=== PATIENT | male | born 1965 | race Caucasian/White ===

== ENCOUNTER 2019-04-05 06:59 | Day surgery (SDC) | payer BC ==
[2019-03-31 14:54] VITALS: BMI 22.1
[~2019-04-05 06:59] MED LIST: LACTATED RINGERS 1,000 ML IV SCH
[2019-04-05 07:20] VITALS: RESP 16; TEMP 97.8
[2019-04-05] MEDS ORDERED: LIDOCAINE 1% 20 ML VIAL (10MG/ML) FOR IV START INTRADERMA ONE (07:30)
[2019-04-05] MEDS ORDERED: PROPOFOL 10 MG/ML 20 ML VIAL IV ONE (08:01)
[2019-04-05] MEDS ORDERED: LIDOCAINE 1% INJ 10MG/ML (20 ML MDV) ONE (08:01)
--- NOTE | 2019-04-05 08:36 | P.PCN ---
Date of Procedure: 04/05/19 Description of Procedure: BRIEF HISTORY: Patient is a 53-year-old male who presents for outpatient colonoscopy for screening for neoplasm the colon. No prior colonoscopies reported. The patient denies any change in bowel habits, abdominal pain, blood per rectum or family history of colon cancer. PROCEDURE PERFORMED: Colonoscopy with polypectomy. PREOPERATIVE DIAGNOSIS: Screening for malignant neoplasm of the colon, No Prior Colonoscopies reported. ESTIMATED BLOOD LOSS: Minimal. IV sedation per Anesthesia. PROCEDURE: After informed consent was obtained, the patient, was brought into the endoscopy unit. IV sedation was administered by Anesthesia under continuous monitoring. Digital rectal examination was normal. Initially the Olympus CF-190 flexible video colonoscope was then inserted in the rectum, gradually advanced into the cecum without any difficulty. Careful examination was performed as the scope was gradually being withdrawn. Ileocecal valve and the appendiceal orifice were visualized and appeared normal. Prep was excellent. Mucosa of the cecum, as cending colon, transverse colon, descending colon, sigmoid colon, and rectum appeared normal. Diminutive 1 mm descending colon polyp removed with cold forcep polypectomy. Diminutive 2 mm sigmoid colon polyp removed with cold forcep polypectomy. Retroflexion was performed in the rectum and no lesions were seen. The patient tolerated the procedure well. IMPRESSION: 2 diminutive colon polyps removed from the descending colon and sigmoid colon with cold forcep polypectomy. Otherwise Normal-appearing colon from rectum to cecum. RECOMMENDATIONS: Findings of this examination were discussed with the patient. Okay to resume diet and medications. Await pathology from polypectomy. Would recommend repeat colonoscopy in 5-10 years pending pathology from polypectomies.
[2019-04-05 08:39] VITALS: PULSE 67
[2019-04-05 08:52] VITALS: BP 101/73
== END 2019-04-05 09:22 ==
LOC: ORWHC2ENDO 06:59
PROVIDERS: ATTEND Internal Medicine
DX: Z12.11 Encounter for screening for malignant neoplasm of colon (principal); K63.5 Polyp of colon; F17.210 Nicotine dependence, cigarettes, uncomplicated; Z80.6 Family history of leukemia
CPT/HCPCS: 88305; 45380; J2001; J2704

== ENCOUNTER 2020-11-17 22:37 | Inpatient (IN) | payer BC ==
[2020-11-17] MEDS ORDERED: diphenhydrAMINE 50 MG/ML 1 ML VIAL IVP STA (22:51)
[2020-11-17] MEDS ORDERED: FAMOTIDINE 20 MG/2 ML VIAL IV STA (22:51)
[2020-11-17] MEDS ORDERED: methylPREDNISolone SOD SUCCI 125 MG/2 ML VIAL IV STA (22:51)
[2020-11-17] MEDS ORDERED: SODIUM CHLORIDE 0.9% 500 ML 500 ML IV STA (22:52)
[2020-11-17 23:12] LABS: Basophils # (A) 0.1 k/uL (0-0.2); Basophils % (A) 1 %; Eosinophils # (A) 0.4 k/uL (0-0.7); Eosinophils % (A) 3 %; HGB 16.2 gm/dL (13.0-17.5); Lymphocytes % (A) 14 %; MCH 31.2 pg (25.0-35.0); MCHC 33.7 g/dL (31.0-37.0); MCV 92.6 fL (80.0-100.0); Mean Platelet Volume 8.3; Monocytes # (A) 0.7 k/uL (0-1.0); Monocytes % (A) 5 %; Neutrophils % (A) 77 %; Platelet Count 178 k/uL (150-450); RBC 5.18 m/uL (4.30-5.90); RDW 13.3 % (11.5-15.5); WBC 14.4 k/uL (3.8-10.6)
[2020-11-17 23:24] LABS: Albumin 4.5 g/dL (3.5-5.0); Calcium 10.1 mg/dL (8.4-10.2); Potassium 3.8 mmol/L (3.5-5.1); Total Bilirubin 0.5 mg/dL (0.2-1.3); Total Protein 7.2 g/dL (6.3-8.2)
--- NOTE | 2020-11-18 00:18 | CT ---
EXAMINATION TYPE: CT soft tissue neck w con DATE OF EXAM: 11/17/2020 COMPARISON: None HISTORY: Throat Swelling CT DLP: 276.60 mGycm Automated exposure control for dose reduction was used. CONTRAST: Performed with IV Contrast, patient injected with 100 mL of Isovue 300. Images obtained from the top of the aortic arch to the top of the frontal sinuses with IV contrast. There is fairly normal aeration of the paranasal sinuses. There is mild mucosal thickening in the pos terior right maxillary sinus. Orbital margins are intact. There is no evidence of retro-orbital mass. Maxilla is intact. Nasal bone is intact. Epiglottis shows some thickening. This has low attenuation and could be edema. The prevertebral soft tissues appear intact. Cervical vertebra have normal spacing and alignment. Facet joints are intact. The tongue appears intact. The tonsils and adenoids are within normal limits. The parotid glands are symmetric. Submandibular salivary glands are symmetric. I see no cervical dell opathy. The subglottic trachea appears normal. IMPRESSION: There is enlarged epiglottis with low attenuation consistent with edema. Epiglottis measures 2.5 x 1. 8 cm and consistent with epiglottitis. This exam was discussed with Dr. Carlisle at 12:15 AM.
[2020-11-18] MEDS ORDERED: ACETAMINOPHEN TAB 325 MG TAB PO PRN ×2 (03:25→15:54)
[2020-11-18] MEDS ORDERED: NALOXONE 0.4 MG/ML 1 ML VIAL IV PRN (03:25)
[2020-11-18] MEDS ORDERED: ONDANSETRON 4 MG/2 ML VIAL IVP PRN (03:25)
[2020-11-18] MEDS ORDERED: SODIUM CHLORIDE 0.9% 1,000 ML IV SCH (03:30)
[2020-11-18] MEDS ORDERED: cefTRIAXone IN SWFI 1,000 MG/10 ML SYRINGE IVP STA (03:34)
[2020-11-18] MEDS ORDERED: CLINDAMYCIN 900 MG in DEXTROSE 5% IN WATER 50 ML IVPB STA ×2 (03:35)
[2020-11-18] MEDS: DEXAMETHASONE SOD PHOSPHATE 10 MG/ML 1 ML VIAL IV SCH ×3 (04:00→20:57)
[2020-11-18] MEDS ORDERED: VANCOMYCIN IV PER PHARMACY 1 EACH MISC MISCELLANE PRN (05:16)
[2020-11-18] MEDS ORDERED: VANCOMYCIN 1,250 MG in SODIUM CHLORIDE 0.9% 250 ML IVPB ONE (05:30)
--- NOTE | 2020-11-18 05:41 | P.HPIM ---
History of Present Illness H&P Date: 11/18/20 Chief Complaint: sore throat 54-year-old male with Past medical history Comes in with couple day history of sore throat he described it as itchy throat however this has been progressing to difficulty managing his saliva describing odynophagia when he swallows he denies any drooling, he also been noticing today that he is having some muffled voice. For which she decided come hospital for evaluation he reports some chills but denies fever he denies any sick contacts. Denies any abdominal pain nausea vomiting denies any chest pain or trouble breathing, he denies any coughing or wheezing or congestion In the ED he was evaluated blood work showed leukocytosis patient was tachycardic imaging with CT of the neck and soft tissue showed acute epiglottitis Case discussed with ENT who recommended admission for monitoring and starting patient on antibiotic coverage and steroids Review of Systems Pertinent positives as noted in HPI. All other systems were reviewed and are negative Past Medical History Past Medical History: No Reported History History of Any Multi-Drug Resistant Organisms: None Reported Past Surgical History: No Surgical Hx Reported Past Anesthesia/Blood Transfusion Reactions: No Reported Reaction Past Psychological History: No Psychological Hx Reported Smoking Status: Current every day smoker Past Alcohol Use History: None Reported Past Drug Use History: None Reported - Past Family History Father Family Medical History: Cancer Additional Family Medical History / Comment(s): leukemia Medications and Allergies Home Medications Medication Instructions Recorded Confirmed Type Sildenafil Citrate [Viagra] 100 mg PO ONCE PRN 03/31/19 03/31/19 History Allergies Allergy/AdvReac Type Severity Reaction Status Date / Time No Known Allergies Allergy Verified 11/17/20 22:42 Physical Exam Vitals: Vital Signs Temp Pulse Resp BP Pulse Ox 11/18/20 03:00 78 18 138/82 95 11/17/20 23:42 104 H 18 125/83 5 L 11/17/20 23:00 25 H 11/17/20 22:40 98.1 F 108 H 20 152/89 99 Intake and Output 11/17/20 11/17/20 11/18/20 14:59 22:59 06:59 Other: Weight 72.575 kg Constitutional: No acute distress, conversant, pleasant, patient looks comfortable sitting up in bed he has muffled voice no drooling Eyes: Anicteric sclerae, moist conjunctiva, Pupils equal round reactive to light ENMT: NC/AT Oropharynx clear, no erythema, or exudates Neck: No stridor, Supple, no masses, or JVD No carotid bruits No thyromegaly Lungs: Clear to auscultation, no wheezing no rhonchi Clear to percussion Normal respiratory effort, no accessory muscle use Cardiovascular: Heart regular in rate and rhythm, No murmurs, gallops, or rubs No peripheral edema Abdominal: Soft Nontender, no guarding, rebound or rigidity Abdomen moving with respiration Normoactive bowel sounds No hepatomegaly, No splenomegaly No palpable mass No abdominal wall hernia noted Skin: Normal temperature, tone, texture, turgor No induration No subcutaneous nodules No rash, lesions No ulcers Extremities: No digital cyanosis No clubbing Pedal pulses intact and symmetrical Radial pulses intact and symmetrical No calf tenderness Psychiatric: Alert and oriented to person, place and time Appropriate affect fair judgement Neuro Muscles Strength 5/5 in all 4 extremities Sensation to light touch grossly present throughout Cranial nerves II-XII grossly intact No focal sensory deficits Lymphatics: no palpable cervical or supraclavicular , or inguinal lymph nodes Results CBC & Chem 7: 11/17/20 22:53 11/17/20 22:53 Labs: Abnormal Lab Results - Last 24 Hours (Table) 11/17/20 11/17/20 Range/Units 22:53 22:53 WBC 14.4 H (3.8-10.6) k/uL Neutrophils # 11.0 H (1.3-7.7) k/uL Glucose 108 H (74-99) mg/dL Assessment and Plan Assessment: Sepsis Acute epiglottitis Close monitoring Continuous pulse ox Cardiac telemetry Follow-up cultures Patient started empirically on antibiotics ENT recommended steroids, observation and close monitoring Strict nothing by mouth Gentle IV fluid hydration Pain control with IV NSAIDs DVT prophylaxis mechanical Currently patient is able to manage his saliva and manage his airways no drooling no tripoding no stridors Anticipated length of stay less than 2 midnights Anticipated discharge home
[2020-11-18] MEDS ORDERED: KETOROLAC 15 MG/ML 1 ML VIAL IVP PRN (05:42)
[2020-11-18] MEDS ORDERED: ACETAMINOPHEN IV (For NPO) 1,000 MG in EMPTY BAG 1 BAG IVPB PRN (05:42)
[2020-11-18] MEDS: SODIUM CHLORIDE 0.9% 1,000 ML IV SCH (10:01)
[2020-11-18] MEDS ORDERED: CLINDAMYCIN 900 MG in DEXTROSE 5% IN WATER 50 ML IVPB SCH ×2 (12:00)
[2020-11-18] MEDS ORDERED: TEMAZEPAM 30 MG CAP PO PRN (14:48)
[2020-11-18 15:12] LABS: Glucose,Whole Blood 136 mg/dL (75-99)
--- NOTE | 2020-11-18 15:23 | P.CNPUL ---
History of Present Illness Consult date: 11/18/20 Requesting physician: Jose M Reed Reason for consult: other Chief complaint: Adult epiglottitis/supraglottitis History of present illness: Pulmonary/critical care consultation dated 11/18/2020. This is a 54-year-old male with no significant past medical history, who presents to the emergency department on November 17, with complaints of difficulty swallowing, sore throat, tightness in his throat, and an itching in the back of his throat. The patient states that his swallowing became more painful, it is 40 seem to change, and he came into the emergency room to be evaluated. He apparently was seen by the ear nose and throat physician who was concerned about adult epiglottitis/supraglottitis. He feels is likely bacterial in nature. He asked me if the patient could be transferred to the intensive care unit to be monitored and watched more closely. I acquiesced. The patient currently is not feeling short of breath, nor is there any audible or auscultatory stridor. The patient denies any significant past medical history. He does smoke cigarettes. He denies hypertension, hyperlipidemia, diabetes, cancer, etc. His primary care physician is Dr. Pierce Bourgeois we sees once a year for a general exam. He doesn't take any medications at home on a regular basis. He's never had any surgery before. Family history is positive for a father with leukemia. Review of Systems REVIEW OF SYSTEMS: CONSTITUTIONAL: [Negative.] NEUROLOGIC: [ Negative.] HEENT: Throat tightness, sore throat, itchy throat. CARDIAC: [Negative.] PULMONARY: [Negative.] GI: [Negative.] : [Negative.] RHEUMATOLOGIC: [ Negative.] IMMUNOLOGIC: [ Negative.] ENDOCRINE: [Negative. ] DERMATOLOGIC: [Negative.] Past Medical History Past Medical History: No Reported History History of Any Multi-Drug Resistant Organisms: None Reported Past Surgical History: No Surgical Hx Reported Past Anesthesia/Blood Transfusion Reactions: No Reported Reaction Past Psychological History: No Psychological Hx Reported Smoking Status: Current every day smoker Past Alcohol Use History: None Reported Past Drug Use History: None Reported - Past Family History Father Family Medical History: Cancer Additional Family Medical History / Comment(s): leukemia Medications and Allergies Home Medications Medication Instructions Recorded Confirmed Type No Known Home Medications 11/18/20 11/18/20 History Allergies Allergy/AdvReac Type Severity Reaction Status Date / Time No Known Allergies Allergy Verified 11/18/20 08:12 Physical Exam Osteopathic Statement: *. No significant issues noted on an osteopathic structural exam other than those noted in the History and Physical/Consult. Vitals: Vital Signs Temp Pulse Pulse Resp BP BP Pulse Ox 11/18/20 10:14 20 95 11/18/20 08:00 98.1 F 80 16 117/73 97 11/18/20 05:27 90 16 116/68 99 11/18/20 05:23 16 11/18/20 04:43 99 11/18/20 04:30 99.1 F 99 18 116/77 96 11/18/20 04:11 2 L 11/18/20 03:00 78 18 138/82 95 11/18/20 01:00 77 18 114/89 96 11/17/20 23:42 104 H 18 125/83 95 11/17/20 23:00 25 H 11/17/20 22:40 98.1 F 108 H 20 152/89 99 Intake and Output 11/18/20 11/18/20 11/18/20 06:59 14:59 22:59 Other: # Voids 0 Weight 72.575 kg No acute distress, oriented 3. HEENT examination is grossly unremarkable. Mucous membranes are moist. No oral lesions. No posterior pharyngeal masses or lesions. Neck supple. Full range of motion. No adenopathy thyromegaly or neck vein distention. No inspiratory stridor. Cardiovascular examination reveals regular rhythm rate. S1-S2 normal. No S3 or S4. No discernible murmur noted. Heart rate is 80 bpm. Lungs reveal clear breath sounds. Breath sounds are equal bilaterally. No adventitious lung sounds including wheezes rhonchi or crackles. Abdomen soft bowel sounds are heard. No masses or tenderness. Extremities are intact. No cyanosis clubbing or edema. Skin is without rash or lesion. Neurologic examination is brief but nonfocal. Results - Laboratory Findings CBC and BMP: 11/17/20 22:53 11/17/20 22:53 Abnormal lab findings: Abnormal Labs 11/17/20 11/17/20 11/18/20 22:53 22:53 15:10 WBC 14.4 H Neutrophils # 11.0 H Glucose 108 H POC Glucose (mg/dL) 136 H - Diagnostic Findings Chest x-ray: other Assessment and Plan Assessment: Adult bacterial epiglottitis/supraglottitis. History of tobacco use and nicotine addiction. Plan: Plan dated 11/18/2020. The patient is transferred to the intensive care unit for further monitoring and management. The patient is currently on Decadron, and antibiotics in the form of clindamycin and Rocephin. Additional recommendations and suggestions are forthcoming. The patient's also on vancomycin. Antibiotics can probably BD escalated in next day or so. We'll continue to follow. Should the patient take a turn for the worse, we'll have anesthesia intubate the patient prophylactically. The patient understands that should he have any progression of symptomatology, especially drooling, difficulty breathing, or inability to swallow, he should let us know right away. Time with Patient: Greater than 30
--- NOTE | 2020-11-18 15:57 | P.PN ---
Subjective Patient is doing fairly well today. He denies any difficulty breathing. He reports feeling better compared to yesterday. Objective - Vital Signs Vital signs: Vital Signs Temp 98.1 F 11/18/20 08:00 Pulse 80 11/18/20 08:00 Resp 20 11/18/20 10:14 BP 117/73 11/18/20 08:00 Pulse Ox 95 11/18/20 10:14 Intake & Output 11/17/20 11/18/20 11/18/20 18:59 06:59 18:59 Weight 72.575 kg Other: # Voids 0 - Exam General: The patient is awake and alert, in no distress Eye: there is normal conjunctiva bilaterally. Neck: The neck is supple, there is no JVD. Cardiovascular: Normal S1-S2, no S3-S4, no murmurs. Respiratory: Lungs clear to auscultation bilaterally Gastrointestinal: Abdomen is soft, nontender Musculoskeletal: There is no pedal edema. Neurological:. Speech is normal. Skin: Skin is warm and dry - Labs CBC & Chem 7: 11/17/20 22:53 11/17/20 22:53 Labs: Abnormal Lab Results - Last 24 Hours (Table) 11/17/20 11/17/20 11/18/20 Range/Units 22:53 22:53 15:10 WBC 14.4 H (3.8-10.6) k/uL Neutrophils # 11.0 H (1.3-7.7) k/uL Glucose 108 H (74-99) mg/dL POC Glucose (mg/dL) 136 H (75-99) mg/dL Assessment and Plan Assessment: This is a 54-year-old male with past medical history noted below presented to the emergency room with itchy throat and difficulty managing his saliva. Patient was evaluated in the ER and admitted to the hospital for further management of his medical problems noted below. 1. Acute epiglottitis, noted on computed tomography scan. Started on broad- spectrum antibiotic with IV ceftriaxone and vancomycin day #1. Also started on IV steroids. It is questionable whether steroid is beneficial in his condition. We'll continue supportive care otherwise. IV fluid hydration. Blood culture sent and pending. Patient was seen and evaluated by ENT and pulmonary, appreciate recommendations. Continue close monitoring. Repeat lab work in the morning.
[2020-11-18] MEDS: VANCOMYCIN 1,250 MG in SODIUM CHLORIDE 0.9% 250 ML IVPB SCH (18:58)
[2020-11-19] MEDS: DEXAMETHASONE SOD PHOSPHATE 10 MG/ML 1 ML VIAL IV SCH ×3 (05:27→22:20)
[2020-11-19] MEDS: VANCOMYCIN 1,250 MG in SODIUM CHLORIDE 0.9% 250 ML IVPB SCH ×3 (05:27→21:05)
[2020-11-19] MEDS: SODIUM CHLORIDE 0.9% 1,000 ML IV SCH ×2 (05:27→10:32)
[2020-11-19 05:39] LABS: Basophils % (A) 0 %; Eosinophils % (A) 0 %; HCT 42.1 % (39.0-53.0); HGB 14.2 gm/dL (13.0-17.5); Lymphocytes # (A) 0.7 k/uL (1.0-4.8); Lymphocytes % (A) 5 %; MCH 30.6 pg (25.0-35.0); MCHC 33.6 g/dL (31.0-37.0); MCV 90.9 fL (80.0-100.0); Mean Platelet Volume 8.7; Monocytes # (A) 0.8 k/uL (0-1.0); Monocytes % (A) 6 %; Neutrophils # (A) 12.4 k/uL (1.3-7.7); Neutrophils % (A) 88 %; Platelet Count 182 k/uL (150-450); RBC 4.63 m/uL (4.30-5.90); RDW 13.8 % (11.5-15.5); WBC 14.1 k/uL (3.8-10.6)
[2020-11-19 06:00] LABS: African American GFR (CKD) >90 (>60 ml/min/1.73 sqM); Anion Gap 5 mmol/L; Blood Urea Nitrogen 17 mg/dL (9-20); Calcium 8.6 mg/dL (8.4-10.2); Carbon Dioxide 24 mmol/L (22-30); Chloride 109 mmol/L (98-107); Glucose 144 mg/dL (74-99); Non-African American GFR(CKD) >90 (>60 ml/min/1.73 sqM); Potassium 4.4 mmol/L (3.5-5.1); Sodium 138 mmol/L (137-145)
--- NOTE | 2020-11-19 08:40 | CONS ---
CONSULTATION DATE OF CONSULTATION: 11/18/2020. REASON FOR CONSULTATION: Acute epiglottitis/supraglottitis. HISTORY OF PRESENT ILLNESS: The patient is a very pleasant 54-year-old male who was admitted to [facility] via the Emergency room Department. The patient states that approximately a week prior to his coming to the emergency room, he developed an upper respiratory tract infection which eventually subsided. However, several days ago he noticed a scratchiness/slight sore throat. The soreness became progressively worse and patient had some difficulty swallowing due to the pain. In addition to this, the patient states that he noticed that his voice had become quite deep. He denied experiencing any difficulty breathing, however. The patient smokes approximately 1- 1/2 packs of cigarettes per day and has been advised to quit for obvious health reasons. He states that he is going to try to quit smoking. He is in no acute distress at this time. The patient was seen in the emergency room department where the ER physician performed a lateral x-ray of the neck, which showed evidence of acute epiglottitis with the classic "thumb" sign. There was no evidence of any abscess of the epiglottis. The patient's subglottic airway appears to be completely normal. PAST MEDICAL HISTORY: Past medical history reveals that the patient has no known allergies to medications. He is not currently taking any medications. There is no history of asthma, diabetes mellitus or hypertension. The patient smokes approximately 1-1/2 packs of cigarettes per day. REVIEW OF SYSTEMS: Review of systems is noncontributory. PHYSICAL EXAMINATION: This patient is a 54-year-old male who was alert, cooperative and well-oriented to time and place. He is in no acute distress or respiratory difficulty at this time. When I was notified about the patient at 2:30 am on the morning of 11/18/2020, I recommended the patient be admitted and placed on high dose IV antibiotics, specifically Rocephin and vancomycin. In addition to this, I recommended that the ER doctor place the patient on a schedule of dexamethasone. He was also to be placed on 40% O2 via either a nasal cannula or a facial tent with his IV placed at 150 mL/hour. PHYSICAL EXAMINATION: HEENT examination: Patient is normocephalic. Tympanic membranes are normal. Middle ear spaces are free of any fluid or infection. Pupils equal, round, react to light and accommodation. Extraocular movements within normal limits. Intranasal examination reveals moderate to severe septal deviation to the right with compensatory hypertrophy of inferior turbinates bilaterally. There is moderate amount of clear mucus on the mucous membranes and draining down the posterior pharynx. Limited examination of the oropharynx does not reveal any evidence of any injection of the posterior pharyngeal wall. In addition to this, the epiglottis is not obviously visible. (The examination of the oropharynx is limited out of concern of potentially causing the patient to develop laryngeal spasm and possibly become obstructed). NECK: Palpation of neck reveals only slight tenderness and posterior to the sternomastoid muscles bilaterally. The patient states that prior to coming to the emergency room that his neck was extremely tender to the touch. I do not feel any significant lymphadenopathy or neck masses at this time. CRANIAL nerves 2 through 12 and the remainder of the head and neck exam is within normal limits. CHEST/CARDIOVASCULAR: Both lung dill exhibit scattered wheezes but no actual rales or rhonchi. The patient is in regular sinus rhythm. S1, S2 are present without any murmurs, S3s or S4s. Peripheral pulses are bilaterally symmetrical. ABDOMEN: There is no evidence any masses, megaly or tenderness. Abdomen: Soft. SKIN is unremarkable. The remainder of physical exam is unremarkable. IMPRESSION: Acute epiglottitis/supraglottitis. PLAN: We will continue the patient on high dose IV antibiotics and steroids at this time. I will evaluate the patient daily. I spoke with Dr. Zambrano and he is willing to accept the patient for observation in the intensive care unit. The reason for the request to transfer the patient to the intensive care unit is that if the necessity arises for intubation, it could be done expeditiously by the staff in the ICU and also they could more closely monitored the patient. If the patient continues to improve, he may possibly be discharged home on oral antibiotics on Friday. I will see the patient tomorrow and re-evaluate him at that time. I want to take this opportunity to thank you for allowing me to assist in the care of your patient. If I could be of any further assistance, please feel free to call my office. I will continue to follow this patient with you as long as he is in the hospital. MMODL / IJN: [id number] / RUPAL
[2020-11-19] MEDS: ENOXAPARIN 40 MG/0.4 ML SYRINGE SQ SCH (09:49)
--- NOTE | 2020-11-19 12:18 | P.PN ---
Subjective Progress Note Date: 11/19/20 Principal diagnosis: Acute epiglottitis/supraglottitis This is a 54-year-old male with no significant past medical history, who presents to the emergency department on November 17, with complaints of difficulty swallowing, sore throat, tightness in his throat, and an itching in the back of his throat. The patient states that his swallowing became more painful, it is 40 seem to change, and he came into the emergency room to be evaluated. He apparently was seen by the ear nose and throat physician who was concerned about adult epiglottitis/supraglottitis. He feels is likely bacterial in nature. He asked me if the patient could be transferred to the intensive care unit to be monitored and watched more closely. I acquiesced. The patient currently is not feeling short of breath, nor is there any audible or auscultatory stridor. The patient denies any significant past medical history. He does smoke cigarettes. He denies hypertension, hyperlipidemia, diabetes, c ancer, etc. His primary care physician is Dr. Pierce Bourgeois we sees once a year for a general exam. He doesn't take any medications at home on a regular basis. He's never had any surgery before. Family history is positive for a father with leukemia. The patient is seen today November 19, 2020 in the intensive care unit. He is currently sitting up in bed. Awake and alert in no acute distress. No worsening shortness of breath cough or congestion. He still has some fullness in the right side of his neck when he swallows. No inspiratory stridor. He is maintaining good O2 saturations in the 90s on room air. No IV fluids. White count 14.1. Hemoglobin 14.2. Sodium 138. Potassium 4.4. Creatinine 0.79. He remains on Decadron. Antibiotics including vancomycin and ceftriaxone. Lovenox for DVT prophylaxis. Objective - Vital Signs Vital signs: Vital Signs Temp 98.0 F 11/19/20 08:00 Pulse 85 11/19/20 10:00 Resp 10 L 11/19/20 10:00 BP 109/82 11/19/20 10:00 Pulse Ox 94 L 11/19/20 10:00 Intake & Output 11/18/20 11/19/20 11/19/20 18:59 06:59 18:59 Intake Total 672 2100 822 Output Total 300 Balance 372 2100 822 Weight 73 kg Intake: IV 450 1900 600 .9 150ml/hr 450 1650 600 Vancomycin 1,250 mg In 250 Sodium Chloride 0.9% 250 ml @ 125 mls/hr IVPB ONCE ONE Rx#:[id number] Oral 222 200 222 Output: Urine 300 Other: Voiding Method Toilet Toilet Urinal Urinal # Voids 1 1 0 - Exam Alert, pleasant 54-year-old male patient, No acute distress, oriented 3. HEENT examination is grossly unremarkable. Mucous membranes are moist. No oral lesions. No posterior pharyngeal masses or lesions. Neck supple. Full range of motion. No adenopathy thyromegaly or neck vein distention. No inspiratory stridor. Cardiovascular examination reveals regular rhythm rate. S1-S2 normal. No S3 or S4. No discernible murmur noted. Heart rate is 80 bpm. Lungs reveal clear breath sounds. Breath sounds are equal bilaterally. No adventitious lung sounds including wheezes rhonchi or crackles. Abdomen soft bowel sounds are heard. No masses or tenderness. Extremities are intact. No cyanosis clubbing or edema. Skin is without rash or lesion. Neurologic examination is brief but nonfocal. - Labs CBC & Chem 7: 11/19/20 05:03 11/19/20 05:03 Labs: Abnormal Lab Results - Last 24 Hours (Table) 11/18/20 11/19/20 11/19/20 Range/Units 15:10 05:03 05:03 WBC 14.1 H (3.8-10.6) k/uL Neutrophils # 12.4 H (1.3-7.7) k/uL Lymphocytes # 0.7 L (1.0-4.8) k/uL Chloride 109 H (98-107) mmol/L Glucose 144 H (74-99) mg/dL POC Glucose (mg/dL) 136 H (75-99) mg/dL Assessment and Plan Assessment: 1 Adult bacterial epiglottitis/supraglottitis. Currently on vancomycin and ceftriaxone. 2 History of tobacco use and nicotine addiction. Plan: The patient was seen and evaluated by Dr. Zambrano No inspiratory stridor and on room air Clear for transfer out of the ICU Continue vancomycin and ceftriaxone We will continue to follow I, the cosigning physician, performed a history & physical examination of the patient. Lungs sounds are clear. Maintaining good O2 saturations in the 90s on room air. I discussed the assessment and plan of care with my nurse practitioner, Karmen Hopper. I attest to the above note as dictated by her.
--- NOTE | 2020-11-19 13:40 | P.PN ---
Subjective Patient is doing fairly well today. He denies any difficulty breathing or swallowing. Vital signs stable. He was on room air when I saw her. Objective - Vital Signs Vital signs: Vital Signs Temp 98.0 F 11/19/20 08:00 Pulse 85 11/19/20 10:00 Resp 10 L 11/19/20 10:00 BP 109/82 11/19/20 10:00 Pulse Ox 94 L 11/19/20 10:00 Intake & Output 11/18/20 11/19/20 11/19/20 18:59 06:59 18:59 Intake Total 672 2100 822 Output Total 300 Balance 372 2100 822 Weight 73 kg Intake: IV 450 1900 600 .9 150ml/hr 450 1650 600 Vancomycin 1,250 mg In 250 Sodium Chloride 0.9% 250 ml @ 125 mls/hr IVPB ONCE ONE Rx#:[id number] Oral 222 200 222 Output: Urine 300 Other: Voiding Method Toilet Toilet Urinal Urinal # Voids 1 1 0 - Exam General: The patient is awake and alert, in no distress Eye: there is normal conjunctiva bilaterally. Neck: The neck is supple, there is no JVD. Cardiovascular: Normal S1-S2, no S3-S4, no murmurs. Respiratory: Lungs clear to auscultation bilaterally Gastrointestinal: Abdomen is soft, nontender Musculoskeletal: There is no pedal edema. Neurological:. Speech is normal. Skin: Skin is warm and dry - Labs CBC & Chem 7: 11/19/20 05:03 11/19/20 05:03 Labs: Abnormal Lab Results - Last 24 Hours (Table) 11/18/20 11/19/20 11/19/20 Range/Units 15:10 05:03 05:03 WBC 14.1 H (3.8-10.6) k/uL Neutrophils # 12.4 H (1.3-7.7) k/uL Lymphocytes # 0.7 L (1.0-4.8) k/uL Chloride 109 H (98-107) mmol/L Glucose 144 H (74-99) mg/dL POC Glucose (mg/dL) 136 H (75-99) mg/dL Assessment and Plan Assessment: This is a 54-year-old male with past medical history noted below presented to the emergency room with itchy throat and difficulty managing his saliva. Patient was evaluated in the ER and admitted to the hospital for further management of his medical problems noted below. 1. Acute epiglottitis, noted on computed tomography scan. Started on broad- spectrum antibiotic with IV ceftriaxone and vancomycin day #1. Also started on IV steroids. It is questionable whether steroid is beneficial in his condition. We'll continue supportive care otherwise. IV fluid hydration. Blood culture sent and pending. Patient was seen and evaluated by ENT and pulmonary, appreciate recommendations. Continue close monitoring. Repeat lab work in the morning.
[2020-11-20] MEDS: VANCOMYCIN 1,250 MG in SODIUM CHLORIDE 0.9% 250 ML IVPB SCH (03:48)
[2020-11-20] MEDS ORDERED: DEXAMETHASONE SOD PHOSPHATE 4 MG/ML 1 ML VIAL IV SCH (04:00)
--- NOTE | 2020-11-20 06:21 | PN ---
PROGRESS NOTE DATE OF SERVICE: 11/19/2020. SUBJECTIVE: The patient is afebrile. He states that he is feeling 80% better compared to when he was originally admitted. His voice has returned to just about normal. He states he still has a very slight sore throat on the left side. He denies any difficulty breathing on inspiration or expiration. OBJECTIVE: HEENT: Patient is normocephalic. Examination of the oropharynx and palpation neck reveals no change in exam of the oropharynx and palpation of the neck reveals essentially no cervical tenderness or lymphadenopathy or neck masses. Chest/cardiovascular: Patient still has a few scattered wheezes at the base of the lungs, but otherwise unremarkable. Patient is in regular sinus rhythm. The remainder of physical exam is essentially unremarkable. ASSESSMENT: Resolving acute epiglottitis/supraglottitis. PLAN: From an ENT standpoint, if it is okay with the patient's primary doctor, the patient can be discharged home on 11/20/2020. I have left a prescription for homegoing antibiotic that is appropriate, Ceftin 500 mg tablets, #20. He is to take 1 tablet p.o. b.i.d. until gone. I have also requested that he take the next 3 days off from work and that he rest as much as possible and maintain fluids. There are no restrictions on his diet. He may eat any food stuff that he feels comfortable eating. I have given the patient 1 of my business cards in the event that he should develop any issues. I will not need to see him on followup after his discharge. All of the patient's questions were answered and the prescription has been left at the nurse's station. If the patient has any remaining dexamethasone to be given, it is okay to stop that tomorrow prior to his discharge. If possible, the patient should be given 1 dose of the Rocephin and vancomycin prior to his discharge if possible. I want to take this opportunity to thank you for allowing me to assist in the care of your patient. If I can be any further assistance in the future, please feel free to call my office. RTACEY / BELAN: [phone] / [email or web address]
[2020-11-20] MEDS: ENOXAPARIN 40 MG/0.4 ML SYRINGE SQ SCH (07:20)
[2020-11-20 08:15] VITALS: BP 116/76; PULSE 118; RESP 18; TEMP 97.7
--- NOTE | 2020-11-20 08:30 | P.DS ---
Providers Date of admission: 11/18/20 03:25 Expected date of discharge: 11/20/20 Attending physician: Jose M Reed MD Consults: 11/18/20 03:27 Consult Physician Urgent Consulting Provider: Rohit Alcantar Consult Reason/Comments: epiglottitis Do you want consulting provider notified?: Already Contacted 11/18/20 14:37 Consult Physician Urgent Consulting Provider: Christopher Zambrano Consult Reason/Comments: Acute epiglottitis, ICU placement Do you want consulting provider notified?: Already Contacted Primary care physician: Pierce Bourgeois [facility] Course: This is a 54-year-old male with past medical history noted below presented to the emergency room with itchy throat and difficulty managing his saliva. Patient was evaluated in the ER and admitted to the hospital for further management of his medical problems noted below. 1. Acute epiglottitis, noted on computed tomography scan. Started on broad- spectrum antibiotic with IV ceftriaxone and vancomycin. Also started on IV steroids. Blood culture negative to date. Patient was seen and evaluated by ENT and pulmonary, appreciate recommendations. His overall condition remained stable throughout hospital stay. He would be discharged home in a stable condition. Finish antibiotic course with Ceftin for another 10 days. Physical exam: General: The patient is awake and alert, in no distress Eye: there is normal conjunctiva bilaterally. Neck: The neck is supple, there is no JVD. Cardiovascular: Normal S1-S2, no S3-S4, no murmurs. Respiratory: Lungs clear to auscultation bilaterally Gastrointestinal: Abdomen is soft, nontender Musculoskeletal: There is no pedal edema. Neurological:. Speech is normal. Skin: Skin is warm and dry Patient Condition at Discharge: Fair Plan - Discharge Summary Discharge Rx Participant: Yes New Discharge Prescriptions: New Cefuroxime Axetil [Ceftin] 500 mg PO BID 10 Days #20 tab Discharge Medication List Cefuroxime Axetil [Ceftin] 500 mg PO BID 10 Days #20 tab 11/20/20 [Rx] Follow up Appointment(s)/Referral(s): Pierce Bourgeois MD [Primary Care Provider] - 1 Week Patient Instructions/Handouts: Epiglottitis (DC) Discharge Disposition: HOME SELF-CARE
[2020-11-20] MEDS ORDERED: VANCOMYCIN TROUGH DUE 1 EACH MISC MISCELLANE ONE (11:00)
--- NOTE | 2020-12-07 07:32 | ED ---
ENT HPI - General Chief complaint: ENT Stated complaint: Throat swelling Time Seen by Provider: 11/17/20 22:47 Source: patient Mode of arrival: ambulatory Limitations: no limitations - History of Present Illness Initial comments: This patient is 54-year-old man who presents to be evaluated for a scratchy feeling in his throat and change in his swallowing. The patient noticed this within the past couple of hours tonight. He denies fever or chills. No known ALLERGIES. Patient denies dyspnea. States that his voice is a little bit hoarse compared with usual. MD complaint: sore throat -: hour(s) Location: throat Severity: mild Quality: dull Consistency: constant Improves with: none Worsens with: swallowing Associated Symptoms: sore throat - Related Data Previous Rx's Medication Instructions Recorded Cefuroxime Axetil [Ceftin] 500 mg PO BID 10 Days #20 tab 11/20/20 Allergies Allergy/AdvReac Type Severity Reaction Status Date / Time No Known Allergies Allergy Verified 11/18/20 08:12 Review of Systems ROS Statement: Those systems with pertinent positive or pertinent negative responses have been documented in the HPI. ROS Other: All systems not noted in ROS Statement are negative. Constitutional: Denies: fever, chills ENT: Reports: throat pain. Denies: ear pain, congestion Respiratory: Denies: cough, dyspnea, wheezes Cardiovascular: Denies: chest pain, syncope Gastrointestinal: Denies: abdominal pain, vomiting Skin: Denies: rash Neurological: Denies: headache Past Medical History Past Medical History: No Reported History History of Any Multi-Drug Resistant Organisms: None Reported Past Surgical History: No Surgical Hx Reported Past Anesthesia/Blood Transfusion Reactions: No Reported Reaction Past Psychological History: No Psychological Hx Reported Smoking Status: Current every day smoker Past Alcohol Use History: None Reported Past Drug Use History: None Reported - Past Family History Father Family Medical History: Cancer Additional Family Medical History / Comment(s): leukemia General Exam Limitations: no limitations General appearance: alert, in no apparent distress Head exam: Present: atraumatic, normocephalic Eye exam: Present: normal appearance. Absent: scleral icterus, conjunctival injection ENT exam: Present: normal oropharynx, mucous membranes moist, TM's normal bilaterally, normal external ear exam Neck exam: Present: normal inspection, full ROM. Absent: tenderness, meningismus, lymphadenopathy Respiratory exam: Present: normal lung sounds bilaterally. Absent: respiratory distress, wheezes, rales, rhonchi, stridor Cardiovascular Exam: Present: regular rate, normal rhythm, normal heart sounds. Absent: systolic murmur, diastolic murmur, rubs, gallop GI/Abdominal exam: Present: soft. Absent: tenderness, guarding, rebound, mass Neurological exam: Present: alert Skin exam: Present: warm, dry, intact, normal color. Absent: rash Course Vital Signs 11/17/20 11/17/20 11/17/20 22:40 23:00 23:42 Temperature 98.1 F Pulse Rate 108 H 104 H Respiratory 20 25 H 18 Rate Blood Pressure 152/89 125/83 O2 Sat by Pulse 99 95 Oximetry 11/18/20 11/18/20 11/18/20 01:00 03:00 04:11 Temperature Pulse Rate 77 78 Respiratory 18 18 Rate Blood Pressure 114/89 138/82 O2 Sat by Pulse 96 95 2 L Oximetry Medical Decision Making - Medical Decision Making Patient's 54-year-old man presenting with mild sore throat and hoarse voice. Imaging did show what appears to be some epiglottitis. Case is discussed with Dr. 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 Patient be admitted under medicine for further evaluation and treatment. - Lab Data Result diagrams: 11/19/20 05:03 11/19/20 05:03 Lab Results 11/17/20 11/17/20 Range/Units 22:53 22:53 WBC 14.4 H (3.8-10.6) k/uL RBC 5.18 (4.30-5.90) m/uL Hgb 16.2 (13.0-17.5) gm/dL Hct 48.0 (39.0-53.0) % MCV 92.6 (80.0-100.0) fL MCH 31.2 (25.0-35.0) pg MCHC 33.7 (31.0-37.0) g/dL RDW 13.3 (11.5-15.5) % Plt Count 178 (150-450) k/uL MPV 8.3 Neutrophils % 77 % Lymphocytes % 14 % Monocytes % 5 % Eosinophils % 3 % Basophils % 1 % Neutrophils # 11.0 H (1.3-7.7) k/uL Lymphocytes # 2.0 (1.0-4.8) k/uL Monocytes # 0.7 (0-1.0) k/uL Eosinophils # 0.4 (0-0.7) k/uL Basophils # 0.1 (0-0.2) k/uL Sodium 142 (137-145) mmol/L Potassium 3.8 (3.5-5.1) mmol/L Chloride 106 (98-107) mmol/L Carbon Dioxide 29 (22-30) mmol/L Anion Gap 7 mmol/L BUN 19 (9-20) mg/dL Creatinine 1.14 (0.66-1.25) mg/dL Est GFR (CKD-EPI)AfAm 86 (>60 ml/min/1.73 sqM) Est GFR (CKD-EPI)NonAf 74 (>60 ml/min/1.73 sqM) Glucose 108 H (74-99) mg/dL Calcium 10.1 (8.4-10.2) mg/dL Total Bilirubin 0.5 (0.2-1.3) mg/dL AST 21 (17-59) U/L ALT 15 (4-49) U/L Alkaline Phosphatase 68 (38-126) U/L Total Protein 7.2 (6.3-8.2) g/dL Albumin 4.5 (3.5-5.0) g/dL Disposition Clinical Impression: Epiglottitis Disposition: ADMITTED IP TO THIS HOSP Condition: Fair Is patient prescribed a controlled substance at d/c from ED?: No
--- NOTE | 2021-01-01 10:31 | CDI ---
Documentation Clarification Form Date: 01/01/2021 10:25:25 AM From: Montrell Feldman Admit Date: 11/18/2020 03:25:00 AM Patient Name: Mikhail Trotter Visit Number: [id number] Discharge Date: 11/20/2020 09:25:00 AM ATTENTION: The Clinical Documentation Specialists (CDI) and [facility] Coding Staff appreciate your assistance in clarifying documentation. Please respond to the clarification below the line at the bottom and electronically sign. The CDI & [facility] Coding staff will review the response and follow-up if needed. Please note: Queries are made part of the Legal Health Record. If you have any questions, please contact the author of this message via ITS. Dr. Coby Maradiaga The patient presented with the following clinical indicators. Additional clarification regarding the etiology/cause of the clinical indicators is requested. H+P documents sepsis. Discharge summary and chart does not mention sepsis. Need to know if sepsis was ruled out. History/Risk Factors: Acute epiglottis Clinical Indicators: ED: WBC: 14.4 Lactic acid: WNL Blood cultures: N/A Vitals signs: Temp 98.1, Pulse 108, B/P 152/89, resp 20 Treatment: ID Consult: Antibiotics: IV Bolus: In your professional opinion, please clarify if these findings signify one of the following conditions: [ X ] Sepsis POA [ ] Sepsis, Not POA [ ] Sepsis ruled out [ ] Severe Sepsis with organ failure [ ] Septic Shock [ ] SIRS, without underlying infectious process [ ] Other, please specify [ ] Unable to determine SIRS Criteria: 2 or more of the following may indicate SIRS -Temperature < 96.8F (36C) or > 101.0F (38.3C) -Heart Rate > 90 bpm -Respiratory Rate > 20 breaths/min or PaCO2 < 32 mmHg -White Blood Cell Count > 12,000 or < 4,000 cells/mm3 or > 10% bands MTDD
== END 2020-11-20 09:25 | disposition home or self-care (01) | DRG 872 ==
LOC: EC 22:37 → 4SSUR 11-18 03:25 → 2SICU 11-18 15:03 → 4SSUR 11-19 21:07
PROVIDERS: ADMIT Internal Medicine; ATTEND Internal Medicine
DX: A41.9 Sepsis, unspecified organism (principal); J05.10 Acute epiglottitis without obstruction; F17.210 Nicotine dependence, cigarettes, uncomplicated; R13.10 Dysphagia, unspecified; Z80.6 Family history of leukemia; Z20.822 Contact with and (suspected) exposure to COVID-19
CPT/HCPCS: 36415; 70491; 80048; 80053; 85025; 87040; 87635; 96361; 96365; 96375; 99284